=== PATIENT | female | born 1955 | race Caucasian/White ===

== ENCOUNTER 2018-10-03 11:45 | Emergency (ER) | payer MEDICAID, OTHER ==
[~2018-10-03] VITALS: Ht 154.9 cm; Wt 103.0 kg
--- NOTE | 2018-10-03 12:00 | NUR ---
PT A/OX4, PRESENTS TO THE ER C/O NECK PAIN W/ STIFFNESS X 10 DAYS. PAIN IS NON-PROVOKED, ACHING IN QUALITY, DOES NOT RADIATE, 8/10, CONSTANT. PT DENIES INJURY. VSS. PT IS AFEBRILE. PT DENIES C/P, SOB, N/V/D, DIZZINESS, HEADACHE. ER MD AT BEDSIDE FOR MSE.
[2018-10-03] MEDS ORDERED: CYCLOBENZAPRINE HCL 10 MG TABLET ONE (12:08)
--- NOTE | 2018-10-03 12:14 | NUR ---
PT TAKEN TO RADIOLOGY FOR CT SCAN.
[2018-10-03] MEDS ORDERED: CYCLOBENZAPRINE HCL 10 MG TABLET PO ONE (12:15)
--- NOTE | 2018-10-03 12:26 | NUR ---
PT BACK IN ER FROM RADIOLOGY.
--- NOTE | 2018-10-03 13:26 | NUR ---
Patient discharged to home in stable conditon. Written and verbal after care instructions given. Patient verbalizes understanding of instructions. PT D/C W/ PRESCRIPTION. ALL BELONGINGS W/ PT. PT SELF-AMBULATED W/O DIFFICULTY.
[2018-10-03 13:28] VITALS: BP 117/66
== END 2018-10-03 13:29 | disposition home or self-care (01) ==
LOC: ER 11:45
DX: M62.838 Other muscle spasm (principal); E11.9 Type 2 diabetes mellitus without complications
CPT/HCPCS: 72125; A4663

== ENCOUNTER 2019-11-03 15:20 | Emergency (ER) | payer MEDICAID ==
[~2019-11-03] VITALS: Ht 154.9 cm; Wt 102.1 kg
[2019-11-03] MEDS ORDERED: MECLIZINE HCL 25 MG TABLET PO ONE (15:30)
[2019-11-03] MEDS ORDERED: MECLIZINE HCL 25 MG TABLET ONE (15:33)
--- NOTE | 2019-11-03 16:35 | NUR ---
PATIENT WAS SEEN BY MD. MEDICATION GIVEN ORDERED. PATIENT STATES SOME IMPROVEMENT BUT STILL FEELS DIZZY. CT SCANS DONE. DC, RX AND FOLLOW UP INSTRUCTIONS GIVEN AND EXPLAINED TO PATIENT ANDKATHERIN WHO STATES THEY UNDERSTANDS ALL INSTRUCTIONS
--- NOTE | 2019-11-03 16:37 | NUR ---
INSTRUCTED NOT TO DRIVE
== END 2019-11-03 16:37 | disposition home or self-care (01) ==
LOC: ER 15:23
DX: R42 Dizziness and giddiness (principal); G44.309 Post-traumatic headache, unspecified, not intractable; F07.81 Postconcussional syndrome; E11.9 Type 2 diabetes mellitus without complications; M47.812 Spondylosis without myelopathy or radiculopathy, cervical region
CPT/HCPCS: 70450; 72125; A4663; J8597

== ENCOUNTER 2020-02-25 20:01 | Emergency (ER) | payer MEDICAID ==
[~2020-02-25] VITALS: Ht 162.6 cm; Wt 103.5 kg
--- NOTE | 2020-02-25 20:11 | NUR ---
Dr. Maciel at bedside for mse.
[2020-02-25] MEDS ORDERED: IV NORMAL SALINE 1000 ML BAG IV ONE ×3 (20:30→22:00)
[2020-02-25 20:40] LABS: BASOPHILS % (AUTO) 0.7 % (0.0-2.0); EOSINOPHILS % (AUTO) 0.1 % (0.0-7.0); HEMATOCRIT 39.3 % (31.2-41.9); HEMOGLOBIN 12.8 g/dL (10.9-14.3); LYMPHOCYTES # (AUTO) 1.5 K/uL (20.0-40.0); LYMPHOCYTES % (AUTO) 31.6 % (20.5-51.5); MEAN CORPUSCULAR HEMOGLOBIN 28.5 uug (24.7-32.8); MEAN CORPUSCULAR HGB CONC 33 g/dL (32.3-35.6); MEAN CORPUSCULAR VOLUME 87.3 fL (75.5-95.3); MONOCYTES # (AUTO) 0.3 K/uL (2.0-10.0); MONOCYTES % (AUTO) 5.4 % (0.0-11.0); NEUTROPHILS # (AUTO) 2.9 K/uL (1.8-8.9); NEUTROPHILS % (AUTO) 62.2 % (38.5-71.5); PLATELET COUNT (AUTO) 150 K/uL (179-408); RED BLOOD CELL COUNT(AUTO) 4.51 MIL/uL (3.63-4.92); WHITE BLOOD COUNT (AUTO) 4.7 K/uL (3.8-11.8)
--- NOTE | 2020-02-25 20:45 | NUR ---
Covid swab collected and walked to lab.
[2020-02-25 20:49] LABS: BILIRUBIN,DIRECT 0.1 mg/dL (0.0-0.2); BILIRUBIN,TOTAL 0.5 mg/dL (0.2-1.0); POTASSIUM 3.7 mmol/L (3.5-5.1); TOTAL PROTEIN, SERUM 7.4 g/dL (6.4-8.2)
[2020-02-25 21:46] LABS: *BILIRUBIN,URIN NEGATIVE (NEGATIVE); *BLOOD, URINE NEGATIVE (NEGATIVE); *CLARITY,URINE CLEAR (CLEAR); *COLOR,URINE YELLOW (YELLOW); *KETONES,URINE NEGATIVE (NEGATIVE); *UROBILINOGEN,URINE 0.2 E.U./dl (NORMAL); LEUKOCYTE ESTERASE ,URINE 1+ (NEGATIVE); NITRITE, URINE NEGATIVE (NEGATIVE); UGLUCOSE NEGATIVE (NEGATIVE)
[2020-02-25 21:57] LABS: BACTERIA,URINE FEW /HPF (NONE SEEN); RBC,URINE 0-3 /HPF (0-3); SQUAMOUS EPITHELIAL CELL,UR FEW /HPF (NONE SEEN)
[2020-02-25] MEDS ORDERED: CEFTRIAXONE 2 G in IV DEXTROSE 5% 100 ML IV ONE (22:00)
[2020-02-25] MEDS ORDERED: CEFTRIAXONE /D5W 50ML IVPB **ER PYXIS IV ONE (22:04)
[2020-02-25 23:28] VITALS: BP 121/61
--- NOTE | 2020-02-25 23:28 | NUR ---
Patient discharged to home in stable condition. Written and verbal after care instructions given. Patient verbalizes understanding of instructions. Stressed follow up or return to ER for worsening s/s. Patient left with stable gait, accompanied by son.
== END 2020-02-25 23:29 | disposition home or self-care (01) ==
LOC: ER 20:03
DX: U07.1 COVID-19 (principal); N39.0 Urinary tract infection, site not specified; R74.0 Nonspecific elevation of levels of transaminase and lactic acid dehydrogenase [LDH]; E11.65 Type 2 diabetes mellitus with hyperglycemia; R91.8 Other nonspecific abnormal finding of lung field
CPT/HCPCS: 36415; 71045; 80048; 80076; 81001; 83605; 83690; 85025; 87040; 87086; 87426; 96361; 96365; 99284; J0696; A4663; J7030

== ENCOUNTER 2024-11-23 09:42 | Emergency (ER) | payer MEDICARE, MEDICAID ==
[~2024-11-23] VITALS: Ht 157.5 cm; Wt 96.6 kg
[2024-11-23] MEDS ORDERED: KETOROLAC TROMETHAMINE 15 MG INJ ONE (11:45)
[2024-11-23 11:48] LABS: BASOPHILS % (AUTO) 0.6 % (0.0-2.0); EOSINOPHILS % (AUTO) 0.4 % (0.0-7.0); HEMATOCRIT 39.2 % (31.2-41.9); HEMOGLOBIN 13.1 g/dL (10.9-14.3); LYMPHOCYTES # (AUTO) 1.9 K/uL (0.8-4.8); LYMPHOCYTES % (AUTO) 30.6 % (20.5-51.5); MEAN CORPUSCULAR HEMOGLOBIN 29.1 uug (24.7-32.8); MEAN CORPUSCULAR HGB CONC 33 g/dL (32.3-35.6); MEAN CORPUSCULAR VOLUME 87.2 fL (75.5-95.3); MONOCYTES # (AUTO) 0.4 K/uL (0.1-1.30); MONOCYTES % (AUTO) 5.7 % (0.0-11.0); NEUTROPHILS # (AUTO) 3.9 K/uL (1.8-8.9); NEUTROPHILS % (AUTO) 62.7 % (38.5-71.5); PLATELET COUNT (AUTO) 162 K/uL (179-408); RED BLOOD CELL COUNT(AUTO) 4.49 MIL/uL (3.63-4.92); RED CELL DISTRIBUTION WIDTH 14.2 % (12.3-17.7); WHITE BLOOD COUNT (AUTO) 6.3 K/uL (3.8-11.8)
[2024-11-23] MEDS: KETOROLAC TROMETHAMINE 15 MG INJ IVP ONE (11:52)
[2024-11-23 12:03] LABS: DIFFERENTIAL COMMENT 1
[2024-11-23 12:04] LABS: CALCIUM 9.3 mg/dL (8.5-10.1); CARBON DIOXIDE 26 mmol/L (21-32); CHLORIDE 102 mmol/L (98-107); CREATININE 0.4 mg/dL (0.6-1.3); GLUCOSE 137 mg/dL (74-106); SODIUM SERUM 141 mmol/L (136-145); UREA NITROGEN, BLOOD 14 mg/dL (7-18)
[2024-11-23 12:09] LABS: ALANINE AMINOTRANSFERASE 29 U/L (14-59); ALBUMIN 3.8 g/dL (3.4-5.0); ALKALINE PHOSPHATASE 73 U/L (50-136); ASPARTATE AMINOTRANSFERASE 13 U/L (15-37); BILIRUBIN,DIRECT 0.1 mg/dL (0.0-0.2); BILIRUBIN,TOTAL 0.4 mg/dL (0.2-1.0); TOTAL PROTEIN, SERUM 7.8 g/dL (6.4-8.2)
[2024-11-23] MEDS ORDERED: NABU-140 PO (13:07)
[2024-11-23 13:22] VITALS: BP 120/76; O2SAT 98
== END 2024-11-23 13:22 | disposition home or self-care (01) ==
LOC: ER 09:42
DX: G44.86 Cervicogenic headache (principal); E11.9 Type 2 diabetes mellitus without complications; Z79.899 Other long term (current) drug therapy
CPT/HCPCS: 99285; 70450; 96374; 80076; 80048; 85025; 85651; 85730; 36415; 72125; J1885; A4606; A4663